=== PATIENT | female | born 1945 | race Caucasian/White ===

== ENCOUNTER 2018-11-10 16:21 | Emergency (ER) | payer MEDICARE ==
[2018-11-10] MEDS ORDERED: Ketorolac Tromethamine 60 MG/2 ML VIAL ONE (17:02)
[2018-11-10 17:10] LABS: #Eosinphils 0.1 thou/uL (0.0-0.7); #Lymphocytes 2.4 thou/uL (1.20-3.40); #Monocytes 0.6 thou/uL (0.11-0.59); #Neutrophils 4.2 thou/uL (1.40-6.50); %Basophils 0.6 % (0.0-1.0); %Eosinophils 1.2 % (0.0-10.0); %Lymphocytes 32.6 % (21.0-51.0); %Monocytes 8.4 % (0.0-10.0); %Neutrophils 57.1 % (42.0-75.0); Hemoglobin 12.7 g/dL (12.0-16.0); Mean Corpuscular Hemoglobin 32.9 pg (27.0-31.0); Mean Corpuscular Volume 102.7 fL (78.0-98.0); Mean Platelet Volume 6.8 fL (7.4-10.4); Platelet Count 352 thou/uL (130-400); RBC Distribution Width 15.3 % (11.5-14.5); Red Blood Cell (RBC) Count 3.85 mill/uL (4.20-5.40); White Blood Cell (WBC) Count 7.3 thou/uL (4.8-10.8)
[2018-11-10 17:30] LABS: ALT (SGPT) 15 U/L (8-55); AST (SGOT) 17 U/L (5-34); Albumin 4.2 g/dL (3.4-4.8); Alkaline Phosphatase 103 U/L (40-150); Anion Gap 17 mmol/L (10-20); BUN (Urea Nitrogen) 14 mg/dL (9.8-20.1); Bilirubin, Total 0.2 mg/dL (0.2-1.2); Calc. Creatinine Clearance 0 mL/min (70-130); Calcium 9.6 mg/dL (7.8-10.44); Carbon Dioxide 25 mmol/L (23-31); Chloride 104 mmol/L (98-107); Estimated GFR-MDRD 82; Globulin 3.5 g/dL (2.4-3.5); Glucose 150 mg/dL (83-110); Potassium 3.8 mmol/L (3.5-5.1); Protein, Total 7.7 g/dL (6.0-8.3); Sodium 142 mmol/L (136-145)
== END 2018-11-10 19:27 | disposition short-term general hospital (02) ==
LOC: MADERS 16:21
DX: M79.661 Pain in right lower leg (principal); R79.89 Other specified abnormal findings of blood chemistry; Z86.73 Personal history of transient ischemic attack (TIA), and cerebral infarction without residual deficits; E03.9 Hypothyroidism, unspecified; K21.9 Gastro-esophageal reflux disease without esophagitis; E78.5 Hyperlipidemia, unspecified; I10 Essential (primary) hypertension; F32.9 Major depressive disorder, single episode, unspecified; Z79.899 Other long term (current) drug therapy; Z79.82 Long term (current) use of aspirin
CPT/HCPCS: 36415; 80053; 85025; 85379; 96372; J1885

== ENCOUNTER → 2018-11-25 | Emergency (ER) | payer MEDICARE ==
[~2018-11-25] MED LIST: Morphine 4 MG/ML VIAL ONE
[2018-11-25 13:59] LABS: #Basophils 0.1 thou/uL (0.0-0.2); #Lymphocytes 1.8 thou/uL (1.20-3.40); #Monocytes 1.4 thou/uL (0.11-0.59); #Neutrophils 8.3 thou/uL (1.40-6.50); %Basophils 0.6 % (0.0-1.0); %Eosinophils 0.1 % (0.0-10.0); %Lymphocytes 15.5 % (21.0-51.0); %Monocytes 12.1 % (0.0-10.0); %Neutrophils 71.6 % (42.0-75.0); Hemoglobin 11.7 g/dL (12.0-16.0); Mean Corpuscular HGB CONC 31.1 g/dL (32.0-36.0); Mean Corpuscular Hemoglobin 31.7 pg (27.0-31.0); Mean Corpuscular Volume 101.8 fL (78.0-98.0); Mean Platelet Volume 6.8 fL (7.4-10.4); Platelet Count 325 thou/uL (130-400); RBC Distribution Width 14.2 % (11.5-14.5); Red Blood Cell (RBC) Count 3.69 mill/uL (4.20-5.40); White Blood Cell (WBC) Count 11.6 thou/uL (4.8-10.8)
[2018-11-25 14:03] LABS: Prothrombin Time 13.5 SEC (12.0-14.7)
[2018-11-25 14:14] LABS: ALT (SGPT) 14 U/L (8-55); AST (SGOT) 17 U/L (5-34); Alkaline Phosphatase 92 U/L (40-150); Anion Gap 15 mmol/L (10-20); BUN (Urea Nitrogen) 10 mg/dL (9.8-20.1); Bilirubin, Total 0.4 mg/dL (0.2-1.2); Calc. Creatinine Clearance 0 mL/min (70-130); Calcium 9.9 mg/dL (7.8-10.44); Carbon Dioxide 30 mmol/L (23-31); Chloride 101 mmol/L (98-107); Estimated GFR-MDRD 73; Globulin 3.8 g/dL (2.4-3.5); Glucose 100 mg/dL (83-110); Potassium 4.4 mmol/L (3.5-5.1); Protein, Total 7.8 g/dL (6.0-8.3); Sodium 142 mmol/L (136-145)
[2018-11-25 14:30] LABS: Bilirubin Negative (Negative); Blood, Urine Negative (Negative); Clarity Clear (Clear); Glucose, Urine (Dipstick) Negative (Negative); Leukocyte Negative (Negative); Nitrite Negative (Negative); Protein, Urine (Dipstick) Negative (Neg-Trace); Specific Gravity, Urine 1.015 (1.005-1.030); Urobilinogen 0.2 mg/dL (0.2-1.0); pH, Urine 7.5 (5.0-9.0)
--- NOTE | 2018-11-25 15:01 | RAD ---
AP PELVIS: Date: 11/25/18 HISTORY: Injury. FINDINGS: There are arthritic changes of the lower lumbar spine. Postoperative changes of the right hip and art hritic changes of the left hip are seen. Pelvic ring appears intact. I do not see any signs of fractu re. IMPRESSION: No evidence of acute injury. POS: [facility]
--- NOTE | 2018-11-25 15:01 | RAD ---
PORTABLE CHEST: Date: 11/25/18 HISTORY: Chest pain status post injury. FINDINGS: Heart size and mediastinum are within normal limits. Lungs are clear of any infiltrates. No significa nt bony findings. IMPRESSION: No active intrathoracic disease. POS: [facility]
--- NOTE | 2018-11-25 15:02 | RAD ---
RIGHT ELBOW 4 VIEWS: Date: 11/25/18 HISTORY: Elbow injury. FINDINGS: There are arthritic changes of the elbow. I do not see any signs of fracture or dislocation. No signs of joint effusion. IMPRESSION: No acute injury. POS: [facility]
--- NOTE | 2018-11-25 15:03 | RAD ---
RIGHT HAND 3 VIEWS: Date: 11/25/18 HISTORY: Hand injury. FINDINGS: There are osteoarthritic changes of the hand and wrist. I do not see any signs of any acute fracture or dislocation. 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 POS: [facility]
--- NOTE | 2018-11-25 15:04 | CT ---
CT OF BRAIN PERFORMED WITHOUT CONTRAST ENHANCEMENT: Date: 11/25/18 HISTORY: Head injury. FINDINGS: There is generalized ventricular and sulcal prominence with decreased attenuation to the periventricu lar white matter consistent with some chronic white matter change. There are no signs of intracerebra l hemorrhage or extra-axial fluid collections. Mastoid air cells and visualized sinuses are clear. IMPRESSION: No acute intracranial abnormalities. POS: [facility]
--- NOTE | 2018-11-25 15:06 | CT ---
CT OF CERVICAL SPINE PERFORMED WITHOUT CONTRAST ENHANCEMENT: Date: 11/25/18 HISTORY: Neck injury. FINDINGS: The vertebral bodies are normal in height. Degenerative disc narrowing is most pronounced at C3-4, C5 -6, and C6-7. There are degenerative facet changes, the facets are in normal alignment. A mild to moderate degree of canal stenosis at C3-4 with bilateral foraminal narrowing, slightly wors e on the left. Asymmetric left uncovertebral changes are present. There is also bilateral foraminal n arrowing, worse on the right at C5-6, and mild bilateral foraminal narrowing at C6-7. There is no CT evidence for fracture. The lung apices are clear. IMPRESSION: No CT evidence of fracture of the cervical spine. POS: [facility]
== END ==
LOC: MADERS 13:15
DX: M54.2 Cervicalgia (principal); M25.559 Pain in unspecified hip; M19.90 Unspecified osteoarthritis, unspecified site; K21.9 Gastro-esophageal reflux disease without esophagitis; F32.9 Major depressive disorder, single episode, unspecified; I10 Essential (primary) hypertension; E03.9 Hypothyroidism, unspecified; Z86.73 Personal history of transient ischemic attack (TIA), and cerebral infarction without residual deficits; Z79.82 Long term (current) use of aspirin; Z79.899 Other long term (current) drug therapy; Z79.891 Long term (current) use of opiate analgesic; W19.XXXA Unspecified fall, initial encounter
CPT/HCPCS: 36415; 70450; 71045; 72125; 72170; 80053; 81003; 85025; 85610; 96372; J2270

== ENCOUNTER 2022-05-03 15:42 | Outpatient (CLI) | payer MEDICARE, MEDICAID ==
[2022-05-03 16:30] LABS: #Basophils 0.1 thou/uL (0.0-0.2); #Eosinphils 0.1 thou/uL (0.0-0.7); #Lymphocytes 2.2 thou/uL (1.20-3.40); #Monocytes 0.6 thou/uL (0.11-0.59); %Basophils 0.9 % (0.0-1.0); %Eosinophils 2.2 % (0.0-10.0); %Lymphocytes 36.6 % (21.0-51.0); %Monocytes 10.1 % (0.0-10.0); %Neutrophils 50.2 % (42.0-75.0); ALT (SGPT) 14 U/L (8-55); AST (SGOT) 14 U/L (5-34); Albumin 4.1 g/dL (3.4-4.8); Alkaline Phosphatase 104 U/L (40-110); Anion Gap 13 mmol/L (10-20); BUN (Urea Nitrogen) 11 mg/dL (9.8-20.1); Bilirubin, Total 0.4 mg/dL (0.2-1.2); Calc. Creatinine Clearance 0 mL/min (70-130); Calcium 8.9 mg/dL (7.8-10.44); Carbon Dioxide 26 mmol/L (23-31); Chloride 108 mmol/L (98-107); Estimated GFR 90; Globulin 2.9 g/dL (2.4-3.5); Glucose 81 mg/dL (83-110); Hemoglobin 13.4 g/dL (12.0-16.0); Mean Corpuscular HGB CONC 31.3 g/dL (32.0-36.0); Mean Corpuscular Hemoglobin 29.5 pg (27.0-31.0); Mean Corpuscular Volume 94.2 fL (78.0-98.0); Mean Platelet Volume 8.2 fL (7.4-10.4); Platelet Count 267 thou/uL (130-400); Potassium 4.1 mmol/L (3.5-5.1); RBC Distribution Width 13.7 % (11.5-14.5); Red Blood Cell (RBC) Count 4.54 mill/uL (4.20-5.40); Sodium 143 mmol/L (136-145)
== END 2022-05-03 15:43 | disposition home or self-care (01) ==
LOC: MADLAB 15:42
DX: E03.9 Hypothyroidism, unspecified (principal); G90.09 Other idiopathic peripheral autonomic neuropathy
CPT/HCPCS: 80053; 85025

== ENCOUNTER 2023-10-03 12:32 | Emergency (ER) | payer MEDICARE, OTHER ==
[2023-10-03] MEDS ORDERED: Tetracaine 0.5% PF 4 ML BOT ONE (13:00)
[2023-10-03] MEDS ORDERED: Fluorescein Opthalmic Strip ONE (13:00)
== END 2023-10-03 15:29 ==
LOC: MADERS 12:32
DX: H53.132 Sudden visual loss, left eye (principal); E03.9 Hypothyroidism, unspecified; K21.9 Gastro-esophageal reflux disease without esophagitis; I10 Essential (primary) hypertension; E78.00 Pure hypercholesterolemia, unspecified; Z79.82 Long term (current) use of aspirin; Z79.899 Other long term (current) drug therapy; Z79.01 Long term (current) use of anticoagulants
CPT/HCPCS: 70450

== ENCOUNTER 2025-08-23 17:34 | Emergency (ER) | payer MEDICARE, MEDICAID ==
[2025-08-23] MEDS ORDERED: Acetaminophen 325 MG TAB ONE (18:27)
== END 2025-08-23 20:27 ==
LOC: MADERS 17:34
DX: S09.90XA Unspecified injury of head, initial encounter (principal); S00.81XA Abrasion of other part of head, initial encounter; I10 Essential (primary) hypertension; W01.198A Fall on same level from slipping, tripping and stumbling with subsequent striking against other object, initial encounter; Z86.73 Personal history of transient ischemic attack (TIA), and cerebral infarction without residual deficits
CPT/HCPCS: 70450; 72125